=== PATIENT | male | born 1935 | race Caucasian/White ===

== ENCOUNTER 2023-05-13 08:37 | Day surgery (SDC) | payer MEDICARE ==
[~2023-05-13] VITALS: Ht 170.2 cm; Wt 80.0 kg
[2023-05-13] VITALS (16 sets, daily range): BP systolic 88–170; BP diastolic 61–116
[~2023-05-13 08:37] MED LIST: ASCO500 PO; CALTRATE 600 P1 EACH PO; CIPR500 PO; CYAN100 PO; Caltrate-600 W1 EACH PO; FINA5 PO; FISH OIL 1,0001 EA10 PO; FISH1000 PO; HYDR1TAB94 PO; IBUP400 PO; LEVSOD50 PO; METO25 PO; MULTI VITAMIN1 EACH PO; Multiple Vitam1 EAC1 PO; OSTEO BI-FLEX1 EAC2 PO; OSTEOBIFLEX PO; PAPAYA ENZYME PO; Papaya Enzyme1 EAC1 PO; Pyridium100 MG PO; SENN187 PO; TAMS.4ER PO; TOCO1000 PO; TOCO400 PO; Vitamin B Comple1 EA PO; WARF2.5 PO; WARF4 PO
--- NOTE | 2023-05-13 16:04 | NUR ---
Patient up to Ambulate independently. Gait steady. Discharge instructions reviewed with patient. Patient verbalizes understanding. Copy given to patient to take home, WELL DAUGHTER. Patient States Post-Procedure ride home has been arranged. Discharged via wheelchair to private car for ride home. PT INCISION SITES C/D/I. PT REPORTS PAIN TOLERABLE.VSS. PT TOLERATING PO. PT REPORTS READY TO GO HOME. PT WAS UP TO BATHROOM WITH SBA. PT WAS ABLE TO VOID. PT GIVEN 2 ICE PACKS PER FAMILY REQUEST. PT SENT WITH SCRIPT. PT REPORTS AWARE TO TAKE BLOOD THINNER IN 48 HOURS WRITTEN ON DISCHARGE PAPERWORK.
== END 2023-05-13 16:04 | disposition home or self-care (01) ==
LOC: ORSCMMR 08:37 → ORD 10:00 → ORSCMMR 16:04 → ORD 06-06 07:30
PROVIDERS: Surgery
PROC: 3E0M45Z Introduction of Adhesion Barrier into Peritoneal Cavity, Percutaneous Endoscopic Approach (ICD-10-PCS; principal; 2023-05-13 11:30)
PROC: 8E0W4CZ Robotic Assisted Procedure of Trunk Region, Percutaneous Endoscopic Approach (ICD-10-PCS; principal; 2023-05-13 11:30)
PROC: 0YU64JZ Supplement Left Inguinal Region with Synthetic Substitute, Percutaneous Endoscopic Approach (ICD-10-PCS; principal; 2023-05-13 11:30)
DX: K40.30 Unilateral inguinal hernia, with obstruction, without gangrene, not specified as recurrent (principal); I10 Essential (primary) hypertension; E03.9 Hypothyroidism, unspecified; E78.5 Hyperlipidemia, unspecified; I48.91 Unspecified atrial fibrillation; Z79.01 Long term (current) use of anticoagulants; Z79.899 Other long term (current) drug therapy; G47.31 Primary central sleep apnea; Z85.46 Personal history of malignant neoplasm of prostate
CPT/HCPCS: A9270; C1781; J0690; J2405; J2704; J2710; J3010; J7120

== ENCOUNTER 2023-05-16 00:40 | Observation (INO) | payer MEDICARE ==
[~2023-05-16] VITALS: Ht 172.7 cm; Wt 88.5 kg
[2023-05-16 02:08] LABS: BASOPHILS ABSOLUTE AUTO 0.04 K/mm3 (0.00-0.23); BASOPHILS PERCENT AUTO 0 % (0-2); EOSINOPHILS ABSOLUTE AUTO 0.27 K/mm3 (0.00-0.68); EOSINOPHILS PERCENT AUTO 2 % (0-6); Hematocrit 42.2 % (37.0-53.0); Hemoglobin 14.3 g/dL (13.5-17.5); IMMATURE GRAN ABSOLUTE AUTO 0.05 K/mm3 (0.00-0.10); IMMATURE GRAN PERCENT AUTO 0 % (0-1); LYMPHOCYTES ABSOLUTE AUTO 1.42 K/mm3 (0.84-5.20); LYMPHOCYTES PERCENT AUTO 12 % (21-46); MONOCYTES ABSOLUTE AUTO 1.45 K/mm3 (0.16-1.47); MONOCYTES PERCENT AUTO 12 % (4-13); Mean Corpuscular HGB 32.6 pg (26.0-34.0); Mean Corpuscular HGB Conc 33.9 g/dL (31.5-36.5); Mean Corpuscular Volume 96 fL (80-100); Mean Platelet Volume 10.7 fL (9.1-12.4); NEUTROPHILS ABSOLUTE AUTO 8.94 K/mm3 (1.96-9.15); NEUTROPHILS PERCENT AUTO 74 % (41-73); Platelet Count 183 K/mm3 (150-400); RDW Coefficient Variation 12.9 % (11.7-14.2); RDW Standard Deviation 45.5 fL (35.1-46.3); Red Blood Cell Count 4.38 M/mm3 (4.30-5.90); White Blood Cell Count 12.17 K/mm3 (4.00-11.30)
[2023-05-16 02:32] LABS: Albumin, Blood 3.3 g/dL (3.4-5.0); Albumin/Globulin Ratio 0.8 (0.8-1.8); Bilirubin, Total 1.1 mg/dL (0.1-1.0); Bun/Creatinine Ratio 15.6 (12.0-20.0); Calcium, Blood 9.4 mg/dL (8.5-10.1); Creatinine, Blood 1.22 mg/dL (0.60-1.20); Globulin, Blood 4.1 g/dL (2.2-4.0); Potassium, Blood 3.8 mmol/L (3.5-5.5); Total Protein, Blood 7.4 g/dL (6.4-8.2)
[2023-05-16 03:10] LABS: Source, Urine Clean Catch
[2023-05-16 03:24] LABS: Bilirubin, Urine Neg (Neg); Blood, Urine 1+ (Neg); Glucose Qualitative, Urine Neg (Neg); Ketones, Urine Neg (Neg); Leukocyte Esterase, Urine Neg (Neg); Nitrite, Urine Neg (Neg); Protein, Urine 1+ (Neg); Urobilinogen, Urine NORM (Normal)
[2023-05-16 03:38] LABS: Appearance, Urine Clear (Clear); Color, Urine Yellow (P-Yellow)
[2023-05-16 03:39] LABS: Bacteria Rare /hpf; Red Blood Cells, Urine 0-2 /hpf (0-2); Squamous Epithelial Cells Few /hpf (Few); White Blood Cells, Urine 0-2 /hpf (0-5)
[2023-05-16 06:46] LABS: Source, Urine Foley catheter
[2023-05-16 06:49] LABS: Appearance, Urine Clear (Clear); Bilirubin, Urine Neg (Neg); Blood, Urine 3+ (Neg); Color, Urine Yellow (P-Yellow); Glucose Qualitative, Urine Neg (Neg); Ketones, Urine Neg (Neg); Leukocyte Esterase, Urine Neg (Neg); Nitrite, Urine Neg (Neg); Protein, Urine 1+ (Neg); Urobilinogen, Urine NORM (Normal)
[2023-05-16 07:02] LABS: Bacteria Rare /hpf; Squamous Epithelial Cells Not Seen /hpf (Few)
[2023-05-16 08:45] LABS: Bun/Creatinine Ratio 16.9 (12.0-20.0); Calcium, Blood 9.1 mg/dL (8.5-10.1); Creatinine, Blood 1.24 mg/dL (0.60-1.20); Potassium, Blood 3.6 mmol/L (3.5-5.5)
[2023-05-16 12:00] LABS: International Normalized Ratio 1.09; Prothrombin Time Results 11.4 Sec (9.7-11.5)
[2023-05-16 12:27] VITALS: BP 116/77
[2023-05-16] MEDS ORDERED: WARF4 PO (12:31)
[2023-05-16 15:55] VITALS: BP 104/64
--- NOTE | 2023-05-16 17:45 | NUR ---
SHIFT SUMMARY AND ADMISSION PATIENT ADMITTED TODAY FOR CONSTIPATION AND URINARY RETENTION. PATIENT HAS HAD A BM SINCE ADMITTED TO MEDICAL FLOOR. CATHETER PLACED IN ED. CONTINUES TO DRAIN YELLOW PAUL URINE. PATIENT DENIES ANY PAIN. ABDOMINAL INCISIONS CLOSED WITH BRUISING AROUND SITES. PATIENT TAKES COUMADIN AT HOME FOR AFIB HX. NO OTHER SKIN ISSUES. PATIENT IS HOPEFUL TO BE DISCHARGED TOMORROW AND HOPES TO GET CATHETER DC'D. PATIENT TOLERATING REGULAR DIET.
[2023-05-16 19:43] VITALS: BP 113/73
[2023-05-17 02:58] VITALS: BP 124/72
--- NOTE | 2023-05-17 04:38 | NUR ---
SHIFT SUMMARY; NO ACUTE CHANGES OVERNIGHT. THE PT IS AXO X4 AND INDEPENDENT IN THE ROOM. THE PT HAS BEEN SLEEPING FOR THE MAJORITY OF THE NIGHT. THE PT HAS A ALEX IN PLACE, IT IS PATENT AND DRAINING TO GRAVITY. THE PT WOKE UP THIS AM WITH A SLIGHT SORE THROAT. WARM TEA W/ HONEY OFFERED TO HELP SOOTH HIS THROAT. THE PT DENIES ANY PAIN, CHEST PAIN/PRESSURE, N/V OR SOB THIS SHIFT. CURRENTLY THE PT IS SLEEPING IN BED WITH THE BED IN THE LOWEST POSITION AND THE CALL LIGHT AT BEDSIDE. FIRE SAFETY ROUNDS COMPLETED.
[2023-05-17 05:52] LABS: BASOPHILS ABSOLUTE AUTO 0.04 K/mm3 (0.00-0.23); BASOPHILS PERCENT AUTO 1 % (0-2); EOSINOPHILS ABSOLUTE AUTO 0.37 K/mm3 (0.00-0.68); EOSINOPHILS PERCENT AUTO 5 % (0-6); Hematocrit 35.7 % (37.0-53.0); IMMATURE GRAN ABSOLUTE AUTO 0.03 K/mm3 (0.00-0.10); IMMATURE GRAN PERCENT AUTO 0 % (0-1); LYMPHOCYTES ABSOLUTE AUTO 1.48 K/mm3 (0.84-5.20); LYMPHOCYTES PERCENT AUTO 19 % (21-46); MONOCYTES ABSOLUTE AUTO 0.82 K/mm3 (0.16-1.47); MONOCYTES PERCENT AUTO 11 % (4-13); Mean Corpuscular HGB 32.9 pg (26.0-34.0); Mean Corpuscular HGB Conc 33.6 g/dL (31.5-36.5); Mean Corpuscular Volume 98 fL (80-100); Mean Platelet Volume 11.4 fL (9.1-12.4); NEUTROPHILS ABSOLUTE AUTO 5.04 K/mm3 (1.96-9.15); NEUTROPHILS PERCENT AUTO 65 % (41-73); Platelet Count 146 K/mm3 (150-400); RDW Coefficient Variation 12.9 % (11.7-14.2); Red Blood Cell Count 3.65 M/mm3 (4.30-5.90); White Blood Cell Count 7.78 K/mm3 (4.00-11.30)
[2023-05-17 06:04] LABS: International Normalized Ratio 1.06; Prothrombin Time Results 11.1 Sec (9.7-11.5)
[2023-05-17 06:50] LABS: Bun/Creatinine Ratio 23.4 (12.0-20.0); Calcium, Blood 8.6 mg/dL (8.5-10.1); Creatinine, Blood 0.9 mg/dL (0.60-1.20); Potassium, Blood 3.6 mmol/L (3.5-5.5)
[2023-05-17 07:32] VITALS: BP 129/85
[2023-05-17 16:03] VITALS: BP 137/74
[2023-05-17 19:36] VITALS: BP 125/74
--- NOTE | 2023-05-17 20:53 | NUR ---
SHIFT SUMMARY PATIENT INDEPENDENT IN THE ROOM AND WALKING THE HALLS WITH FAMILY. PATIENT DENIES ANY PAIN AND VERBALIZES DESIRE TO GO HOME. CATHETER DC'D AT END OF SHIFT. PATIENT TO VOID OR HAVE CATHETER REPLACED BEFORE DISCHARGE. ABD CONTINUES TO HAVE BRUISING IN VARIOUS STAGES OF HEALING. ABD INCISIONS REMAIN CLOSED. FAMILY IN AND OUT TO SEE PATIENT. DAUGHTER ASSISTED PATIENT WITH SHOWER.
[2023-05-18 00:31] LABS: Source, Urine Foley catheter
[2023-05-18 00:39] LABS: Bilirubin, Urine Neg (Neg); Blood, Urine 2+ (Neg); Glucose Qualitative, Urine Neg (Neg); Ketones, Urine Neg (Neg); Leukocyte Esterase, Urine Neg (Neg); Nitrite, Urine Neg (Neg); Protein, Urine Neg (Neg); Specific Gravity, Urine 1.005 (1.003-1.022); Urobilinogen, Urine NORM (Normal)
[2023-05-18 00:40] LABS: Appearance, Urine Clear (Clear); Color, Urine Yellow (P-Yellow)
[2023-05-18 00:49] LABS: Bacteria Not Seen /hpf; Squamous Epithelial Cells Rare /hpf (Few); White Blood Cells, Urine 0-2 /hpf (0-5)
[2023-05-18 05:09] VITALS: BP 108/72
[2023-05-18 06:09] LABS: Albumin, Blood 2.6 g/dL (3.4-5.0); Anion Gap 6 mmol/L (6-16); Blood Urea Nitrogen 14 mg/dL (8-24); Bun/Creatinine Ratio 15.9 (12.0-20.0); CO2, Blood 26 mmol/L (21-32); Calcium, Blood 8.8 mg/dL (8.5-10.1); Chloride, Blood 109 mmol/L (98-108); Creatinine, Blood 0.88 mg/dL (0.60-1.20); Glomerular Filtration Rate 84 (60-); Glucose, Blood 96 mg/dL (70-99); Phosphorus, Blood 4.2 mg/dL (2.5-4.9); Potassium, Blood 3.7 mmol/L (3.5-5.5); Sodium, Blood 141 mmol/L (136-145)
[2023-05-18 06:19] LABS: International Normalized Ratio 1.13; Prothrombin Time Results 11.8 Sec (9.7-11.5)
[2023-05-18 07:33] VITALS: BP 123/76
--- NOTE | 2023-05-18 15:12 | NUR ---
DISCHARGE NOTE MR [place] DENIED ANY PAIN THIS MORNING. NO SOB. HE HAS INDWELLING URINARY ALEX CATHETER IN PLACE THAT WAS REPLACED LAST SHIFT. BEFORE DISCHARGE HE AND HIS FAMILY WERE EDUCATED ON ALEX CARE AND HOW TO EMPTY CATHETER BAG. HE AND HIS FAMILY VERBAILISED UNDERSTANDING OF WRITTEN AND VERBAL DISCHARGE INSTRUCTIONS AND ALEX CARE. PIV REMOVED INTACT. DISCHARGED HOME WITH NO NEW CONCERNS VOICED AT 1255HRS VIA W/C.
== END 2023-05-18 12:53 | disposition home or self-care (01) ==
LOC: ER 00:40 → MEDS 00:41
PROVIDERS: Emergency Medicine; Family Medicine; Nurse Practitioner Acute Care; ADMIT Internal Medicine
DX: N17.8 Other acute kidney failure (principal); N18.30 Chronic kidney disease, stage 3 unspecified; N40.1 Benign prostatic hyperplasia with lower urinary tract symptoms; R33.8 Other retention of urine; I48.91 Unspecified atrial fibrillation; G47.31 Primary central sleep apnea; E78.5 Hyperlipidemia, unspecified; E03.9 Hypothyroidism, unspecified; D72.829 Elevated white blood cell count, unspecified; Z88.6 Allergy status to analgesic agent; Z79.890 Hormone replacement therapy; Z79.01 Long term (current) use of anticoagulants; Z79.899 Other long term (current) drug therapy; Z98.890 Other specified postprocedural states
CPT/HCPCS: 36415; 51702; 51798; 74177; 80048; 80053; 80069; 81001; 83690; 85025; 85610; 96361; 96374; 96376; 99285-25; A9270; G0378; J1885; J7030; Q9967

== ENCOUNTER → 2023-06-04 | Outpatient (CLI) | payer MEDICARE ==
[2023-06-04 08:44] LABS: Source, Urine Clean Catch
[2023-06-04 11:00] LABS: Appearance, Urine Cloudy (Clear); Bilirubin, Urine Neg (Neg); Blood, Urine 5+ (Neg); Color, Urine Yellow (P-Yellow); Glucose Qualitative, Urine Neg (Neg); Ketones, Urine Neg (Neg); Leukocyte Esterase, Urine 3+ (Neg); Nitrite, Urine Pos (Neg); Protein, Urine 3+ (Neg); Specific Gravity, Urine 1.015 (1.003-1.022); Urobilinogen, Urine NORM (Normal)
[2023-06-04 11:12] LABS: Red Blood Cells, Urine 25-50 /hpf (0-2); Squamous Epithelial Cells Not Seen /hpf (Few); White Blood Cells, Urine TNTC /hpf (0-5)
[2023-06-04 11:13] LABS: Bacteria Many /hpf
== END | disposition home or self-care (01) ==
LOC: LAB SHORT 08:43 → LAB 08:43 → EDSTATUS 04-16 16:40 → LAB FUT 04-16 16:40
PROVIDERS: Physician Assistant
DX: R35.0 Frequency of micturition (principal); R39.15 Urgency of urination
CPT/HCPCS: 81001; 87077; 87086; 87186